=== PATIENT | male | born 1975 | race African-American/Black ===

== ENCOUNTER 2023-07-12 13:35 | Emergency (ER) | payer SELFPAY ==
[2023-07-12 13:40] VITALS: BP 127/82; PULSE 104; RESP 20; TEMP 98.7; BMI 28.4
== END 2023-07-12 16:24 | disposition left against medical advice (07) ==
LOC: JERFT 13:35
DX: R04.2 Hemoptysis (principal); R05.9 Cough, unspecified
CPT/HCPCS: 71046-TC-FY; 99283-25